=== PATIENT | male | born 1980 | race African-American/Black ===

== ENCOUNTER 2023-02-16 11:26 | Emergency (ER) | payer OTHER ==
[2023-02-16 12:01] VITALS: BP 137/78; PULSE 89; RESP 18; TEMP 97.8; BMI 24.3
[2023-02-16] MEDS ORDERED: FAMOTIDINE 20 MG TABLET PO ONE (12:38)
[2023-02-16] MEDS ORDERED: ACETAMINOPHEN 325 MG TABLET (FP) PO ONE (12:39)
[2023-02-16] MEDS ORDERED: MAG HYDROX/AL HYDROX/SIMETH 30 ML UNIT-DOSE CUP PO ONE (12:39)
[2023-02-16] MEDS ORDERED: ACETAMINOPHEN 500 MG TABLET (FP) ONE (13:40)
[2023-02-16] MEDS ORDERED: MAG HYDROX/AL HYDROX/SIMETH 30 ML UNIT-DOSE CUP ONE (13:40)
[2023-02-16] MEDS ORDERED: FAMOTIDINE 20 MG TABLET ONE (13:40)
== END 2023-02-16 14:51 | disposition home or self-care (01) ==
LOC: JERFT 11:26
DX: R10.13 Epigastric pain (principal); K29.70 Gastritis, unspecified, without bleeding
CPT/HCPCS: 36415; 84484; 93005; 93010; 99284-25